=== PATIENT | female | born 1990 | race African-American/Black ===

== ENCOUNTER 2016-11-27 19:00 | Emergency (ER) | payer OTHER ==
[~2016-11-27] VITALS: Ht 180.3 cm; Wt 142.0 kg
--- NOTE | ~2016-11-27 | CR173 ---
[facility] A Service of [facility] & [facility] RADIOLOGY TEXT RESULTS PATIENT: ANA CRISTINA SOARES LOCATION: CFTX : [birth year] UNIT #: [id number] AGE: [address]: GUILLERMINA WYNN SEX: F ORDER DR: [id number] [facility] [address] [place], [place] [address] [id number] E MR#: [id number] Acc #: [id number] NAME: ANA CRISTINA SOARES : 1990 SEX: F STUDY DATE/TIME: 11/27/2016 20:50 UNIT: [facility] ROOM: STUDY DESCRIPTION: CR Knee 3 Views Rt Attending Physician: Guillermina Wynn Aprn Ordering Physician: Guillermina Wynn Aprn MEDICAL IMAGING REPORT This report is preliminary unless electronic signature is present EXAM Right knee HISTORY Trauma. Hurt knee while playing basketball. TECHNIQUE Three views of the right knee without comparison. FINDINGS No fracture, dislocation or effusion. No foreign body. IMPRESSION Negative right knee. Dictated by... Gustavo Foster M.D. THIS IS AN ELECTRONICALLY VERIFIED REPORT Gustavo Foster M.D. at 11/28/2016 8:01 PM RPC/jared TD: 11/28/2016 16:43 JOB #: [id number] MEDICAL IMAGING REPORT Page 1 of 1 COPY
== END 2016-11-27 22:13 | disposition home or self-care (01) ==
LOC: CFTX 19:00 → CED 19:00 → CFTX 20:04
DX: S83.91XA Sprain of unspecified site of right knee, initial encounter (principal); X50.1XXA Overexertion from prolonged static or awkward postures, initial encounter; Y92.009 Unspecified place in unspecified non-institutional (private) residence as the place of occurrence of the external cause
CPT/HCPCS: 29505; 73562; 99283

== ENCOUNTER 2016-12-05 13:01 | Emergency (ER) | payer OTHER ==
[~2016-12-05] VITALS: Ht 180.3 cm; Wt 138.3 kg
== END 2016-12-05 13:51 | disposition home or self-care (01) ==
LOC: CED 13:01
DX: L50.1 Idiopathic urticaria (principal)
CPT/HCPCS: 99283